=== PATIENT | female | born 1970 | race Hispanic/Latino ===

== ENCOUNTER 2020-11-14 19:31 | Emergency (ER) | payer BC ==
[~2020-11-14] VITALS: Ht 162.6 cm; Wt 70.3 kg
[2020-11-14] MEDS ORDERED: ONDANSETRON HCL INJ 2MG/ML 2ML 2 MG/ML VIAL IV STA (19:54)
[2020-11-14] MEDS ORDERED: MECLIZINE HCL 12.5 MG TAB PO ONE (20:00)
[2020-11-14] MEDS ORDERED: MECLIZINE HCL 12.5 MG TAB ONE (20:07)
[2020-11-14] MEDS: SODIUM CHLORIDE 0.9% 1000ML 1,000 ML IV SCH ×2 (20:20→22:00)
[2020-11-14 21:16] LABS: BASOPHILS # (AUTO) 0.1 (0.0-0.1); BASOPHILS % 0.6 % (0.0-1.0); EOSINOPHILS # (AUTO) 0.3 (0.0-0.4); EOSINOPHILS % 2.9 % (0.0-6.0); HEMATOCRIT 41.4 % (34.2-44.1); HEMOGLOBIN 13.6 g/dL (12.0-16.0); LYMPHOCYTES # (AUTO) 1.7 (1.0-3.2); LYMPHOCYTES % 15.4 % (18.0-39.1); MEAN CORPUSCULAR HGB CONC 32.9 g/dL (31-35); MEAN CORPUSCULAR VOLUME 91.2 fL (81-99); MONOCYTES # (AUTO) 0.4 (0.2-0.8); NEUTROPHILS # (AUTO) 8.2 (2.1-6.9); NEUTROPHILS % 75.8 % (38.7-80.0); PLATELET COUNT 576 x10e3/uL (140-360); RED BLOOD COUNT 4.54 x10e6/uL (3.6-5.1); RED CELL DISTRIBUTION WIDTH 12.6 % (11.7-14.4)
[2020-11-14 21:33] LABS: ALBUMIN 4.2 g/dL (3.5-5.0); ANION GAP 19.1 mmol/L (8-16); CALCIUM 10.7 mg/dL (8.4-10.2); CREATININE, SERUM 0.99 mg/dL (0.57-1.11); POTASSIUM 4.1 mmol/L (3.5-5.1)
== END 2020-11-14 22:30 | disposition home or self-care (01) ==
LOC: ER 19:57 → MERGE 19:57 → ER 22:30
DX: R11.2 Nausea with vomiting, unspecified (principal); R42 Dizziness and giddiness; U07.1 COVID-19; E11.65 Type 2 diabetes mellitus with hyperglycemia; H40.9 Unspecified glaucoma
CPT/HCPCS: 36415; 80053; 85025; 99283; J2405; J7030; J8597

== ENCOUNTER 2022-07-12 17:47 | Emergency (ER) | payer BC ==
[~2022-07-12] VITALS: Ht 162.6 cm; Wt 70.3 kg
== END 2022-07-12 19:24 | disposition home or self-care (01) ==
LOC: ER 19:06
DX: S00.83XA Contusion of other part of head, initial encounter (principal); W18.2XXA Fall in (into) shower or empty bathtub, initial encounter; Y93.E1 Activity, personal bathing and showering; E11.9 Type 2 diabetes mellitus without complications; H40.9 Unspecified glaucoma
CPT/HCPCS: 99282

== ENCOUNTER 2022-08-10 23:11 | Emergency (ER) | payer BC ==
[~2022-08-10] VITALS: Ht 162.6 cm; Wt 70.3 kg
[2022-08-10 23:30] VITALS: O2SAT 100
== END 2022-08-11 00:21 | disposition home or self-care (01) ==
LOC: ER 23:21
DX: H00.11 Chalazion right upper eyelid (principal)
CPT/HCPCS: 99282